=== PATIENT | female | born 1950 | race Caucasian/White ===

== ENCOUNTER 2020-11-12 05:39 | Inpatient (IN) ==
[2020-11-12] MEDS ORDERED: VANCOMYCIN INJ 1,000 MG in SODIUM CHLORIDE 0.9% 250 ML IV ONE (06:00)
[2020-11-12] MEDS ORDERED: LACTATED RINGERS 1,000 ML IV SCH ×2 (06:00→07:00)
[2020-11-12] MEDS ORDERED: ceFAZolin 1,000 MG VIAL ONE (06:03)
[2020-11-12] MEDS ORDERED: BACITRACIN OINT 0.9 GM PACK TOP ONE (06:20)
[2020-11-12] MEDS ORDERED: DIAZEPAM 5 MG TABLET PO ONE (06:59)
[2020-11-12] MEDS ORDERED: GABAPENTIN 400 MG CAPSULE PO ONE (06:59)
[2020-11-12] MEDS ORDERED: ACETAMINOPHEN 500 MG TABLET PO ONE (06:59)
[2020-11-12] MEDS ORDERED: SCOPOLAMINE 1.5 MG PATCH TRANSDERM ONE (06:59)
[2020-11-12] MEDS ORDERED: FAMOTIDINE 20 MG TABLET PO ONE (06:59)
[2020-11-12] MEDS ORDERED: ROPIVACAINE 0.5% 30 ML VIAL ONE (07:16)
[2020-11-12] MEDS ORDERED: MIDAZOLAM 2 MG/2 ML VIAL ONE (07:16)
[2020-11-12] MEDS ORDERED: LIDOCAINE 2% 5 ML VIAL ONE ×2 (07:16→07:23)
[2020-11-12] MEDS ORDERED: DEXAMETHASONE 4 MG/1 ML VIAL ONE ×2 (07:16→08:26)
[2020-11-12] MEDS ORDERED: fentaNYL 100 MCG/2 ML VIAL ONE ×3 (07:16→09:17)
[2020-11-12] MEDS ORDERED: ETOMIDATE 40 MG/20 ML VIAL IV ONE (07:23)
[2020-11-12] MEDS ORDERED: ONDANSETRON 4 MG/2 ML VIAL ONE (07:23)
[2020-11-12] MEDS ORDERED: ROCURONIUM 50 MG/5 ML VIAL IV ONE (07:23)
[2020-11-12] MEDS ORDERED: SEVOFLURANE 1 UNIT/15 MINUTE INH ONE ×2 (07:23→09:09)
[2020-11-12] MEDS ORDERED: propofoL 200 MG/20 ML VIAL IV ONE (07:23)
[2020-11-12] MEDS ORDERED: SUCCINYLCHOLINE 200 MG/10 ML VIAL ONE (07:23)
[2020-11-12] MEDS ORDERED: PROMETHAZINE 25 MG/1 ML VIAL ONE (08:26)
[2020-11-12] MEDS ORDERED: PHENYLEPHRINE 1 MG/10 ML SYRINGE IV ONE (08:52)
[2020-11-12] MEDS ORDERED: LACTATED RINGERS 1,000 ML IV ONE (09:09)
[2020-11-12] MEDS ORDERED: TRANEXAMIC ACID 1,000 MG/10 ML VIAL ONE (09:33)
[2020-11-12] MEDS ORDERED: MAGNESIUM HYDROXIDE SUSP 30 ML UDCUP PO PRN (10:13)
[2020-11-12] MEDS ORDERED: MORPHINE 4 MG/1 ML VIAL IV PRN ×2 (10:13)
[2020-11-12] MEDS ORDERED: ZALEPLON 5 MG CAPSULE PO PRN (10:13)
[2020-11-12] MEDS ORDERED: ONDANSETRON 4 MG/2 ML VIAL IV PRN (10:13)
[2020-11-12] MEDS ORDERED: diphenhydrAMINE CAP 25 MG CAPSULE PO PRN (10:13)
[2020-11-12] MEDS: LACTATED RINGERS 1,000 ML IV SCH ×2 (12:15→16:17)
[2020-11-12] MEDS: DICYCLOMINE 10 MG CAPSULE PO SCH ×3 (12:16→20:29)
[2020-11-12] MEDS: KETOROLAC 15 MG/1 ML VIAL IV SCH ×3 (12:16→23:39)
[2020-11-12] MEDS: GABAPENTIN 300 MG CAPSULE PO SCH ×2 (14:41→20:29)
[2020-11-12] MEDS: ceFAZolin 2,000 MG in PREMIX 1 EACH IV SCH ×2 (14:42→22:07)
[2020-11-12] MEDS: CIPROFLOXACIN 500 MG TABLET PO SCH (16:17)
[2020-11-12] MEDS: SIMVASTATIN 20 MG TABLET PO SCH (20:29)
[2020-11-12] MEDS: DOCUSATE SODIUM 100 MG CAPSULE PO SCH (20:29)
[2020-11-12] MEDS: APIXABAN 2.5 MG TABLET PO SCH (20:29)
[2020-11-13] MEDS: LACTATED RINGERS 1,000 ML IV SCH ×2 (01:00→10:07)
[2020-11-13] MEDS: KETOROLAC 15 MG/1 ML VIAL IV SCH (05:31)
[2020-11-13 06:02] LABS: Basophils % 0.2 % (0.0-0.8); Hematocrit 37.1 VOL% (35.7-47.0); Hemoglobin 11.5 GM/DL (12.0-16.0); Immature Granulocytes % 0.7 %; Immature Granulocytes Absolute 0.13 #; Lymphocytes # 1.4 10*3/uL (1.4-4.0); Lymphocytes % 7.6 % (21.3-54.2); Mean Corpuscular Volume 86.3 FL (87-102); Mean Platelet Volume 9.8 FL (9.6-12.0); Monocytes % 5.5 % (1.7-12.7); Platelet Count 299 T/CUMM (130-400); Red Cell Distribution Width 14.4 % (9.3-17.3)
[2020-11-13 06:17] LABS: Calcium 8.1 MG/DL (8.5-10.1); Osmolality,Calculated 286.4 MOS/KG (273-304); Potassium 4.3 MMOL/L (3.5-5.1)
[2020-11-13] MEDS: hydroCHLOROthiazide 25 MG TABLET PO SCH (08:48)
[2020-11-13] MEDS: DOCUSATE SODIUM 100 MG CAPSULE PO SCH ×2 (08:48→20:34)
[2020-11-13] MEDS: PARoxetine 20 MG TABLET PO SCH (08:48)
[2020-11-13] MEDS: DICYCLOMINE 10 MG CAPSULE PO SCH ×4 (08:48→20:34)
[2020-11-13] MEDS: GABAPENTIN 300 MG CAPSULE PO SCH ×3 (08:48→20:34)
[2020-11-13] MEDS: APIXABAN 2.5 MG TABLET PO SCH ×2 (08:48→20:34)
[2020-11-13] MEDS: DILTIAZEM CD 180 MG CAPSULE PO SCH (08:48)
[2020-11-13] MEDS: PANTOPRAZOLE 40 MG TABLET PO SCH (08:49)
[2020-11-13] MEDS: CIPROFLOXACIN 500 MG TABLET PO SCH ×2 (08:49→16:16)
[2020-11-13] MEDS: POTASSIUM CHLORIDE 10 MEQ TABLET PO SCH (08:49)
[2020-11-13] MEDS ORDERED: ACETAMINOPHEN 325 MG TABLET PO PRN (11:17)
[2020-11-13] MEDS: LOSARTAN 50 MG TABLET PO SCH (20:34)
[2020-11-13] MEDS: SIMVASTATIN 20 MG TABLET PO SCH (20:34)
[2020-11-13 21:16] LABS: Bilirubin,Urine Negative (Negative); Blood, Urine Negative (Negative); Glucose,Urine (UA) Negative (Negative); Ketones,Urine Negative (Negative); Mucus,Urine Occasional /LPF (Occasional); Nitrite,Urine Negative (Negative); Protein,Urine Negative; RBC,Urine 1 /HPF (0-4); Squamous Epithelial Cell,Urine Occasional /HPF (0-10); Urine Appearance CLEAR (Clear); Urine Color Yellow (Yellow); Urine Specific Gravity 1.021 (1.001-1.035); Urine Urobilinogen < 2.0 EU/DL (0.2-1.0)
[2020-11-14 05:25] LABS: Basophils % 0.3 % (0.0-0.8); Eosinophils # 0.1 10*3/uL (0.0-0.87); Eosinophils % 0.7 % (0.00-10.9); Hemoglobin 11.2 GM/DL (12.0-16.0); Immature Granulocytes % 1.1 %; Immature Granulocytes Absolute 0.16 #; Lymphocytes # 1.4 10*3/uL (1.4-4.0); Lymphocytes % 9.5 % (21.3-54.2); Mean Corpuscular Volume 85.6 FL (87-102); Monocytes % 8.9 % (1.7-12.7); Neutrophils % 79.5 % (38.7-73.9); Platelet Count 286 T/CUMM (130-400); Red Blood Count 4.09 MC/CUMM (3.8-5.5); Red Cell Distribution Width 14.7 % (9.3-17.3); White Blood Count 14.7 T/CUMM (4-12)
[2020-11-14 05:41] LABS: Calcium 8.2 MG/DL (8.5-10.1); Osmolality,Calculated 289.3 MOS/KG (273-304); Potassium 4.4 MMOL/L (3.5-5.1)
[2020-11-14] MEDS: DOCUSATE SODIUM 100 MG CAPSULE PO SCH ×2 (08:25→20:47)
[2020-11-14] MEDS: DICYCLOMINE 10 MG CAPSULE PO SCH ×4 (08:25→20:48)
[2020-11-14] MEDS: DILTIAZEM CD 180 MG CAPSULE PO SCH (08:25)
[2020-11-14] MEDS: CIPROFLOXACIN 500 MG TABLET PO SCH ×2 (08:25→16:16)
[2020-11-14] MEDS: PARoxetine 20 MG TABLET PO SCH (08:26)
[2020-11-14] MEDS: PANTOPRAZOLE 40 MG TABLET PO SCH (08:26)
[2020-11-14] MEDS: GABAPENTIN 300 MG CAPSULE PO SCH ×3 (08:26→20:48)
[2020-11-14] MEDS: APIXABAN 2.5 MG TABLET PO SCH ×2 (08:26→20:48)
[2020-11-14] MEDS: LOSARTAN 50 MG TABLET PO SCH (20:47)
[2020-11-15 05:07] LABS: Basophils # 0.1 10*3/uL (0.0-0.2); Basophils % 0.7 % (0.0-0.8); Eosinophils # 0.7 10*3/uL (0.0-0.87); Eosinophils % 5.6 % (0.00-10.9); Hematocrit 35.8 VOL% (35.7-47.0); Hemoglobin 10.9 GM/DL (12.0-16.0); Immature Granulocytes Absolute 0.25 #; Lymphocytes # 1.9 10*3/uL (1.4-4.0); Lymphocytes % 15.5 % (21.3-54.2); Mean Corpuscular HGB Conc 30.4 GM/DL (32-36); Mean Corpuscular Volume 89.3 FL (87-102); Monocytes % 11.8 % (1.7-12.7); Neutrophils % 64.4 % (38.7-73.9); Platelet Count 290 T/CUMM (130-400); Red Blood Count 4.01 MC/CUMM (3.8-5.5); Red Cell Distribution Width 14.8 % (9.3-17.3); White Blood Count 12.2 T/CUMM (4-12)
[2020-11-15] MEDS: DILTIAZEM CD 180 MG CAPSULE PO SCH (10:06)
[2020-11-15] MEDS: CIPROFLOXACIN 500 MG TABLET PO SCH (10:06)
[2020-11-15] MEDS: APIXABAN 2.5 MG TABLET PO SCH (10:06)
[2020-11-15] MEDS: PARoxetine 20 MG TABLET PO SCH (10:06)
[2020-11-15] MEDS: DOCUSATE SODIUM 100 MG CAPSULE PO SCH (10:06)
[2020-11-15] MEDS: DICYCLOMINE 10 MG CAPSULE PO SCH ×2 (10:07→12:05)
[2020-11-15] MEDS: PANTOPRAZOLE 40 MG TABLET PO SCH (10:07)
[2020-11-15] MEDS: GABAPENTIN 300 MG CAPSULE PO SCH (10:07)
[2020-11-15] MEDS: POTASSIUM CHLORIDE 10 MEQ TABLET PO SCH (10:07)
[2020-11-15] MEDS: hydroCHLOROthiazide 25 MG TABLET PO SCH (10:07)
[2020-11-15 11:19] VITALS: BP 139/48
== END 2020-11-15 14:15 | disposition home health service (06) | DRG 470 ==
LOC: N.OR 05:39 → N.SDSINP 05:41 → N.3E 11:15
PROVIDERS: ADMIT Orthopaedic Surgery; ATTEND Orthopaedic Surgery